=== PATIENT | male | born 1960 | race Caucasian/White ===

== ENCOUNTER 2022-03-06 15:43 | Emergency (ER) | payer OTHER ==
[~2022-03-06 15:43] MED LIST: ALEVE220 M1 PO; BACTRIM DS TAB1 EACH PO; ETODOLAC ER400 MG PO; MUCINEX1200 MG PO; PERCOCET 5-3251 EACH PO; PRAVACHOL40 MG PO; TENORMIN50 MG PO; TUMS200 MG PO
[2022-03-06 19:41] LABS: BASOPHIL 0.1 % (0-2); EOSINOPHIL 0 % (0-5); HCT 40.1 % (42.0-52.0); HGB 13.4 g/dl (13.2-18.0); LYMPHOCYTE 7.2 % (15-48); MCH 31.8 pg (25.0-31.0); MCHC 33.4 g/dL (32.0-36.0); MCV 95.2 fL (78.0-100.0); MONOCYTE 10.3 % (0-12); MPV 9.3 fL (6.0-9.5); NEUTROPHIL 81.9 % (41-80); NRBC 0; PLT 211 K/uL (150-400); RBC 4.21 M/uL (4.70-6.00); RDW 12.3 % (11.5-14.0); WBC 14.5 K/uL (4.0-10.5)
[2022-03-06 19:47] LABS: BILIRUBIN NEGATIVE (NEGATIVE); BLOOD 3+ Ery/uL (NEGATIVE); CLARITY CLEAR (CLEAR); COLOR YELLOW (YELLOW); GLUCOSE (U) NORMAL (NORMAL); LEUKOCYTES NEGATIVE Leu/uL (NEGATIVE); NITRITE NEGATIVE (NEGATIVE); PROTEIN NEGATIVE (NEGATIVE); SPECIFIC GRAVITY 1.025 (1.001-1.030); pH 6.5 (5.0-9.0)
[2022-03-06 19:52] LABS: URINARY RBC 20-50; URINARY WBC RARE
[2022-03-06 19:53] LABS: BACTERIA TRACE
[2022-03-06] MEDS ORDERED: NORCO 5-325 TA1 EACH PO (20:21)
[2022-03-06] MEDS ORDERED: FLOMAX0.4 MG PO (20:21)
[2022-03-06] MEDS ORDERED: ONDANSETRON ODT4 MG PO (20:21)
[2022-03-06 20:35] LABS: ALBUMIN 3.2 g/dL (3.4-5.0); BILIRUBIN - TOTAL 0.7 mg/dL (0.2-1.0); CREATININE 1.47 mg/dL (0.67-1.17); GLOBULIN (CALCULATION) 2.6 g/dL; POTASSIUM 4.3 mmol/L (3.5-5.1); TOTAL PROTEIN 5.8 g/dL (6.4-8.2)
== END 2022-03-06 23:00 | disposition home or self-care (01) ==
LOC: FER 15:43
PROVIDERS: Emergency Medicine
DX: N13.2 Hydronephrosis with renal and ureteral calculous obstruction (principal); I10 Essential (primary) hypertension; E78.5 Hyperlipidemia, unspecified; Z20.822 Contact with and (suspected) exposure to COVID-19; Z79.899 Other long term (current) drug therapy
CPT/HCPCS: 36415; 80053; 81001; 82565; 85025; J1170; J1885; J2405; J7030; U0002